=== PATIENT | male | born 1990 | race Caucasian/White ===

== ENCOUNTER 2018-04-15 08:57 | Emergency (ER) | payer BC, SELFPAY ==
[2018-04-15 09:04] VITALS: BP 143/85; PULSE 81; RESP 16; TEMP 36.3; O2SAT 97
--- NOTE | 2018-04-15 09:42 | DI.RAD_ITS ---
SYMPTOM/DIAGNOSIS: STEPPED ON FLORAL WIRE WITH PUNCTURE WOUND, ? FOREIGN BODY VS FX LEFT FOOT: Three views. No bone or joint abnormality or radiopaque foreign bodies are seen. IMPRESSION: Negative examination.
--- NOTE | 2018-04-15 09:51 | ED.GENADUL_ITS ---
Discharge Plan Disposition Patient Disposition: HOME Condition: Stable Discharge Details Chief Complaint: Laceration Clinical Impression: Puncture wound of foot Primary Care Provider: Ryan Cordon ED Provider: Dior Babin Home Meds and New Rx's Prescriptions: New cephalexin [Keflex] 500 mg capsule 500 mg PO TID 7 Days Qty: 21 RF: 0 Discharge Instructions Instructions: Puncture Wound (ED), Acute Wound Care (ED) Additional Instructions: Alternate tylenol and motrin as needed and directed for pain. Apply topical antibiotic ointment to the affected area twice daily. Keep area clean and dry and wear cotton socks to help with moisture. If you notice any worsening pain, redness or swelling, start the oral antibiotics. If you develop any fever, red streaking or significant worsening of symptoms, return to the emergency department immediately. Follow-up with your primary care doctor in 1 week for reevaluation. Discharge Data Discharge Date/Time-TO BE ENTERED AT DEPARTURE: 04/15/18 11:43 Discharge Physician: Dior Babin Medical Decision Making 27-year-old male presents with puncture wound to left medial foot with floral wire causing a through and through injury to left medial foot near first MTP joint. No obvious foreign body noted. 2 puncture wounds noted. No evidence of infection or bleeding. Neurovascularly intact. Last tetanus 1999. Will give a Boostrix and sent for left foot x-ray to rule out fracture versus foreign body. 1130 -- xray negative for fracture or foreign body. As wound is not exactly plantar and is rather on medial aspect, as he was barefoot and wound not through sole of shoe and as he has no comorbidities of immunocompromise or diabetes, he likely does not need oral antibiotics. Patient was instructed on the importance of good wound care with soap, water, cotton socks to help with moisture. He is instructed to apply Neosporin to the area twice daily for any signs of redness. Will send home with a prescription for Keflex to start if any worsening pain, redness or swelling. He was instructed to return here immediately if he develops a fever, red streaking or any significant worsening symptoms. Patient instructed to follow- up with his primary care doctor in 1 week for reevaluation. HPI General Mode of arrival: ambulatory . Date/Time Provider Initiated Documentation: 04/15/18 09:21 . Limitations to Documentation: no limitations . Information obtained by: patient . HPI Narrative: Patient is a 27-year-old male who presents with puncture wound to left medial foot near first MTP joint sustained yesterday. Patient states he was walking at home barefoot when he stepped on a floral wire which caused a through and through injury. Patient was able to remove the wire. Patient cleaned the area with alcohol. Patient is unsure of his tetanus status. Patient came here for possible tetanus and evaluation of the wound. Related Data Home Medications Medication Instructions Recorded Confirmed cephalexin [Keflex] 500 mg PO TID 7 Days #21 cap 04/15/18 Previous Rx's Medication Instructions Recorded cephalexin [Keflex] 500 mg PO TID 7 Days #21 cap 04/15/18 Allergies Allergy/AdvReac Type Severity Reaction Status Date / Time No Known Allergies Allergy Unverified 04/15/18 09:07 General Stated Complaint: Laceration MARION: 4 Review of Systems Review of Systems All systems reviewed & are unremarkable except as noted in HPI and below Constitutional Reports as per HPI, Denies chills and Denies fever(s) Eyes Denies blurry vision ENT Denies dizziness, Denies sore throat and Denies throat swelling Cardiovascular Denies chest pain and Denies dyspnea Respiratory Denies dyspnea Gastrointestinal Denies abdominal pain, Denies diarrhea and Denies vomiting Genitourinary Denies hematuria and Denies dysuria Musculoskeletal Denies back pain and Denies numbness Integumentary/Breasts Denies lesions and Denies rash Neurologic Denies dizziness and Denies numbness Allergic/Immunologic Denies throat swelling PFSH Migraine (Chronic) Medical History Migraine (Chronic) Social History Smoking/Tobacco Use Status: Never Social History Smoking/Tobacco Use Status: Never alcohol intake: current alcohol intake frequency: a few times a month substance use type: does not use Exam Const General: cooperative, healthy appearing and no acute distress HENMT Head: normal to inspection Mouth: oral mucosae normal Eyes General: appearance normal, both eyes and all related structures Neck Neck: normal visual inspection Resp Effort & Inspection: normal respiratory effort and able to speak in complete sentences Cardio Rate: regular rate Skin General skin exam: no rashes or lesions noted Neuro General: alert, awake and oriented x3 Motor: muscle tone normal throughout Extrem Left lower extremity: foot (Two 2mm puncture wounds noted near L medial 1st MTP joint. No surrounding edema, erythema, ecchymosis or drainage. No obvious foreign body noted.) Details: vascular exam Details: dorsalis pedis pulse present and posterior tibial pulse present Psych Appearance: grossly normal Affect: normal affect Course Vital Signs Temperature 97.3 F L 04/15/18 09:04 Pulse 81 04/15/18 09:04 Respiratory Rate 16 04/15/18 09:04 Blood Pressure 143/85 H 04/15/18 09:04 Pulse Oximetry 97 04/15/18 09:04 Temperature 97.3 F L 04/15/18 09:04 Temperature Source Skin 04/15/18 09:04 Pulse 81 04/15/18 09:04 Respiratory Rate 16 04/15/18 09:04 Respiratory Effort Non-Labored 04/15/18 09:04 Blood Pressure 143/85 H 04/15/18 09:04 Blood Pressure Position Sitting 04/15/18 09:04 Pulse Oximetry 97 04/15/18 09:04 Oxygen Delivery Method Room Air 04/15/18 09:04 Oxygen Flow Rate 0 04/15/18 09:04 Pain Level 2 04/15/18 09:04
--- NOTE | 2018-04-15 11:27 | DI.VRAD_ITS ---
EXAM: XR Left Foot Complete, 3 or more Views EXAM DATE/TIME: 04/15/2018 9:43 AM CLINICAL HISTORY: 27 years old, male; Signs and symptoms; Other: S/P stepped on floral wire with pincture; Patient HX: R/O foreign body vs fracture TECHNIQUE: XR Left foot 3 or more views. COMPARISON: No relevant prior studies available. FINDINGS: Bones/joints: No acute fracture. No dislocation. Soft tissues: No radiopaque foreign body. IMPRESSION: No radiopaque foreign body. Dictated and Authenticated by: Reina Lunsford MD. Ordering:ALINE KELLEY MD
[2018-04-15 11:43] VITALS: BP 111/66; PULSE 78; RESP 16; O2SAT 98
== END 2018-04-15 11:43 | disposition home or self-care (01) ==
PROVIDERS: Emergency Provider Physician Assistant; PCP Family Medicine
DX: S91.332A Puncture wound without foreign body, left foot, initial encounter (principal); W26.8XXA Contact with other sharp object(s), not elsewhere classified, initial encounter
CPT/HCPCS: 90471; 99284; 73630

== ENCOUNTER 2020-03-12 14:47 | Outpatient (REF) | payer BC, SELFPAY ==
[2020-03-17 03:37] LABS: Patient Race White; SARS-CoV-2 RNA Undetected (Undetected); SARS-CoV-2 Specimen Source Nasal
== END 2020-03-12 15:07 ==
LOC: NCHCN 14:47
PROVIDERS: PCP Family Medicine; Visit Provider Nurse Practitioner Family
DX: R05 Cough (principal)
CPT/HCPCS: U0003

== ENCOUNTER 2021-03-08 04:02 | Emergency (ER) | payer BC, SELFPAY ==
[2021-03-08 04:14] VITALS: BP 116/79; PULSE 82; RESP 18; TEMP 36.7; O2SAT 98
--- NOTE | 2021-03-08 04:16 | W.ED.GENAD ---
Discharge Plan Disposition Patient Disposition: HOME Condition: Stable Discharge Details Clinical Impression: Shingles Primary Care Provider: Ryan Cordon ED Provider: Michael Roque Home Meds and New Rx's Prescriptions: New valacyclovir 1 gram tablet 1,000 mg PO Q8H Qty: 21 RF: 0 prednisone 20 mg tablet 60 mg PO DAILY 4 Days Qty: 12 RF: 0 Continued fluoxetine [Prozac] 40 mg Capsule 40 mg PO DAILY RF: 0 magnesium 30 mg Tablet 30 mg PO DAILY RF: 0 cholecalciferol (vitamin D3) [Vitamin D3] 10 mcg (400 unit) Capsule 400 unit PO DAILY RF: 0 Discharge Instructions Instructions: Shingles (ED) Additional Instructions: your rash and pain are due to shingles which is from a virus if not starting to improve in a week follow up with your primary care provider you can take 1000mg tylenol and 600mg ibuprofen every 6 hours for pain as needed and you can try over the counter lidocaine patches if you feel more ill or have severe worsening pain return to the emergency department Medical Decision Making 30 yo male comes in with upper back pain radiating along a line to the chest on the left side and has had a rash develop in the area. No fevers, dyspnea, n/v. His back and chest pain is localized to the rash he has. He has a vesicular rash in patches going from the left back to left chest in the t5 dermatome. No surrouding erythema, clear lungs, no murmurs. His rash and pain is consistent with shingles. Will start him on antivirals and prednisone. Advised to f/u with pcp and return precautions given Differential Diagnosis Differential Diagnosis: shingles, post herpetic neuroalgia HPI General Mode of arrival: ambulatory. Date/Time Provider Initiated Documentation: 03/08/21 04:04. Limitations to Documentation: no limitations. Information obtained by: patient. History of Present Illness 30 year old M presents to the emergency department with the chief complaint of rash, described as moderate, Quality is described as aching, and is localized to the chest and back. Patient started experiencing this day(s) (3) and it has been constant. No relieving factors improve symptom(s), No exacerbating factors reported . Patient did receive the following treatments prior to arrival, none Related Data Home Medications Medication Instructions Recorded Confirmed cholecalciferol (vitamin D3) 400 unit PO DAILY 03/08/21 03/08/21 [Vitamin D3] fluoxetine [Prozac] 40 mg PO DAILY 03/08/21 03/08/21 magnesium 30 mg PO DAILY 03/08/21 03/08/21 prednisone 60 mg PO DAILY 4 Days #12 tab 03/08/21 valacyclovir 1,000 mg PO Q8H #21 tab 03/08/21 Previous Rx's Medication Instructions Recorded prednisone 60 mg PO DAILY 4 Days #12 tab 03/08/21 valacyclovir 1,000 mg PO Q8H #21 tab 03/08/21 Allergies Allergy/AdvReac Type Severity Reaction Status Date / Time No Known Allergies Allergy Unverified 03/08/21 04:20 General MARION: 4 Review of Systems All systems reviewed & are unremarkable except as noted in HPI and below Constitutional Constitutional: Denies chills, Denies fever(s) and Denies weakness Cardiovascular Cardiovascular: Denies dyspnea Respiratory Respiratory: Denies cough and Denies dyspnea Gastrointestinal Gastrointestinal: Denies abdominal pain, Denies nausea and Denies vomiting Musculoskeletal Musculoskeletal: Denies joint swelling Neurologic Neurologic: Denies weakness [facility] Medical History (Updated 03/08/21 @ 04:27 by Michael Roque MD) Migraine Social History (Updated 04/15/18 @ 09:48 by Dior Babin DO) Smoking/Tobacco Use Status: Former Tobacco Use Smoking risk assessment performed?: Yes Alcohol Intake: current Alcohol Intake frequency: a few times a month Drug use: Never Substance use type: does not use Do you feel safe at home: Yes Do you feel safe in your relationship?: Yes Exam Const General: no acute distress Orientation: alert HENMT Head: normal to inspection Ears: external ears normal General nose exam: external nose normal Mouth: moist mucous membranes Eyes General: appearance normal, both eyes and all related structures Neck Neck: normal visual inspection Resp Effort & Inspection: normal respiratory effort and able to speak in complete sentences Cardio Rate: regular rate Skin General skin exam: elasticity normal Neuro General: patient alert and patient oriented x3 Extrem General: normal to inspection Psych Mental Status: mental status grossly normal
[2021-03-08] MEDS: predniSONE 20 MG TAB 60 MG PO (04:36)
[2021-03-08] MEDS: valACYclovir 500 MG TAB (04:38)
== END 2021-03-08 04:47 | disposition home or self-care (01) ==
PROVIDERS: Emergency Provider Emergency Medicine; PCP Family Medicine
DX: B02.9 Zoster without complications (principal)
CPT/HCPCS: 99283; J7512

== ENCOUNTER 2021-11-16 10:42 | Outpatient (REF) | payer SELFPAY ==
[2021-11-17 15:18] LABS: COVID-19 RT-PCR UVMMC Result Negative (Negative)
== END 2021-11-16 10:43 | disposition home or self-care (01) ==
LOC: LBN 10:42
PROVIDERS: PCP Family Medicine; Visit Provider Nurse Practitioner Family
DX: Z20.822 Contact with and (suspected) exposure to COVID-19 (principal)
CPT/HCPCS: U0003

== ENCOUNTER 2022-05-23 00:13 | Emergency (ER) | payer OTHER, SELFPAY ==
[2022-05-23 00:18] VITALS: BP 136/96; PULSE 88; RESP 16; TEMP 37; O2SAT 99
--- NOTE | 2022-05-23 00:27 | ED.GENADUL_ITS ---
Discharge Plan Disposition Patient Disposition: Home Condition: Good Discharge Details Clinical Impression: Gout attack Primary Care Provider: Ryan Cordon ED Provider: Guillermo Velasquez Home Meds and New Rx's Prescriptions: New prednisone 50 mg tablet 50 mg PO DAILY Qty: 4 0RF No Action Probiotic 5 billion cell Capsule, Sprinkle 2 cap PO BID magnesium 30 mg Tablet 30 mg PO DAILY cholecalciferol (vitamin D3) [Vitamin D3] 10 mcg (400 unit) Capsule 400 unit PO DAILY Discharge Instructions Instructions: Gout (ED) Additional Instructions: At this time your symptoms are concerning for gout. There is no current evidence of infection thankfully. Please take 800 mg of ibuprofen/Motrin, and 1000 mg of acetaminophen/Tylenol every 6 hours. These are the maximum doses. Reapply a square section of the Lidoderm patch to your foot every 12-24 hours. Take the prednisone steroid as directed. Taking the steroid and the NSAID medication can cause some stomach irritation. Make sure to take these medications on a full stomach. Please avoid any cheeses, preserved meats, or high-protein diet components. If you notice any worsening of your symptoms, or any new symptoms such as vomiting, diarrhea, fever, chills, shortness of breath, chest pain, numbness, weakness, or fainting , please return immediately to the emergency department for reevaluation. Please follow up with your primary care provider as soon as possible for reassessment and reevaluation. As always, it was a pleasure participating in your medical care today. Medical Decision Making 31-year-old male with a family history of gout presents today for pain in his right great toe. Patient admits to about 2 days of mild achiness and then notable worsening of pain tonight. He denies any trauma, he states that it felt like he might of stubbed it but denies stubbing it on anything. He does eat meats and cheeses regularly but denies any excessive use. He has taken Motrin which is only mildly improved his pain. He denies any history of gout in the past. No fever or chills. No other complaints at this time. Exam demonstrates evidence of tender interphalangeal joint for the right great toe. Mild redness, minimal swelling, no fluctuance or fluid collection. No streaking. No evidence of paronychia or nail infection. No evidence of cellulitis or streaking. No fever or chills. Symptoms appear to be clinically consistent at this time with mild gout. Will recommend Tylenol and Motrin, will give a dose of Toradol here. We will start the patient on a prednisone burst, will give Lidoderm patch topically, and monitor close follow-up with family practice physician at [place]. No indication for imaging as there was no trauma. No evidence of foreign body or injection site. Recommend dietary changes. Discussed red flags for which to return. I have extensively reviewed the treatment plan and discharge instructions with the patient and their family. I have addressed all patient concerns at this time. The patient and family was made aware of what symptoms to monitor for that would warrant a return to the emergency department. Discussed the plan with the patient and family, they demon strate verbal understanding and agreement with our assessment and plan at this time. The documentation in this chart was dictated using [employer] dictation software. Please excuse any dictation errors. HPI General Date/Time Provider Initiated Documentation: 05/23/22 00:14 . HPI Narrative: 31-year-old male with a family history of gout presents today for pain in his right great toe. Patient admits to about 2 days of mild achiness and then notable worsening of pain tonight. He denies any trauma, he states that it felt like he might of stubbed it but denies stubbing it on anything. He does eat meats and cheeses regularly but denies any excessive use. He has taken Mot rin which is only mildly improved his pain. He denies any history of gout in the past. No fever or chills. No other complaints at this time. Related Data Home Medications Medication Instructions Recorded Confirmed cholecalciferol (vitamin D3) 10 400 unit PO DAILY 03/08/21 05/23/22 mcg (400 unit) capsule (Vitamin D3) magnesium 30 mg tablet 30 mg PO DAILY 03/08/21 05/23/22 Lactobacil.acidophilus-Bifido.animalis 2 cap PO BID 05/23/22 05/23/22 5 billion cell sprinkle capsule (Probiotic) prednisone 50 mg tablet 50 mg PO DAILY #4 tabs 05/23/22 Previous Rx's Medication Instructions Recorded prednisone 50 mg tablet 50 mg PO DAILY #4 tabs 05/23/22 Allergies Allergy/AdvReac Type Severity Reaction Status Date / Time No Known Allergies Allergy Unverified 03/08/21 04:20 General Stated Complaint: Orthopedic MARION: 3 Review of Systems All systems reviewed & are unremarkable except as noted in HPI and below PFSH All Active Problems Shingles (Acute) Gout attack (Acute) Medical History Migraine Social History Smoking/Tobacco Use Status: Former Tobacco Use Smoking risk assessment performed?: Yes Alcohol Intake: current Alcohol Intake frequency: a few times a month Drug use: Never Substance use type: does not use Do you feel safe at home: Yes Do you feel safe in your relationship?: Yes Exam Narrative Exam Narrative: 1.Const: Well-nourished, Well-developed, appearing stated age 2.Eyes: PERRL, no conjunctival injection, and symmetrical lids. 3.ENT: Atraumatic external nose and ears. Moist MM. Neck: Symmetric, trachea midline, No thyromegaly. 4.CVS: +S1/S2, No murmurs or gallops. Peripheral pulses 2+ and equal in all extremities. Brisk capillary refill in all extremities. 5.RESP: Unlabored respiratory effort. Clear to auscultation bilaterally. No wheezes rales or rhonchi 6.GI: Soft, Nontender/Nondistended, No hepatosplenomegaly. No guarding or rebound. 7.MSK: Normocephalic/Atraumatic, right great toe demonstrates no paronychia, or evidence of infection around the nailbed. There is evidence of mild swelling at the interphalangeal joint for the great toe on the lateral aspect. No fluctuance. Minimal redness. It is cool in temperature. It is not hot. No abscess or streaking proximally. Patient does have notable pain with flexion and extension of the toe. No signs of trauma otherwise though. 8.Skin: Warm, Dry. No rashes or lesions. 9.Neuro: mason apprentice II-XII grossly intact. Sensation grossly intact, no focal neurologic deficits. 10.Psych: (AAO) x3. Appropriate mood and affect Course Vital Signs Vital signs: Vital Signs Temperature 37 C 05/23/22 00:18 Pulse 88 01/09/23 00:18 Respiratory Rate 16 05/23/22 00:18 Blood Pressure 136/96 H 05/23/22 00:18 Pulse Oximetry 99 05/23/22 00:18 Temperature 37 C 05/23/22 00:18 Temperature Source Temporal Artery Scan 05/23/22 00:18 Pulse 88 05/23/22 00:18 Respiratory Rate 16 05/23/22 00:18 Respiratory Effort 05/23/22 00:18 Blood Pressure 136/96 H 05/23/22 00:18 Blood Pressure Position Sitting 05/23/22 00:18 Pulse Oximetry 99 05/23/22 00:18 Oxygen Delivery Method Room Air 05/23/22 00:18 Oxygen Flow Rate 0 05/23/22 00:18 Pain Level 8 05/23/22 00:18
[2022-05-23] MEDS: predniSONE 20 MG TAB 60 MG PO (00:35)
[2022-05-23] MEDS: Ketorolac 30 MG/ML VIAL IM (00:35)
[2022-05-23] MEDS: Lidocaine 5% Patch 1 PATCH TP (00:36)
[2022-05-23] MEDS: Acetaminophen 500 MG TAB 1000 MG PO (00:39)
== END 2022-05-23 01:23 | disposition home or self-care (01) ==
LOC: ER 01:23
PROVIDERS: Emergency Provider Student in an Organized Health Care Education/Training Program; PCP Family Medicine
DX: M10.9 Gout, unspecified (principal)
CPT/HCPCS: 96372; 99283; 99284; J1885; J7512

== ENCOUNTER 2023-12-27 16:02 | Outpatient (CLI) | payer BC, SELFPAY ==
[2023-12-29 08:45] LABS: HBs Antibody, Quant 37.4 mIU/mL (See Note); Hepatitis B Surface Ab Positive (See Note)
[2023-12-29 09:25] LABS: HIV-1/2 Ag & Ab Screen Negative (Negative)
[2023-12-29 09:28] LABS: Hepatitis C Ab w Rflx HCV PCR Negative (Negative)
[2023-12-29 09:55] LABS: Hep B Core Antibody Negative (Negative)
[2023-12-29 11:48] LABS: Syphilis Serology (RPR) Negative (Negative)
[2023-12-29 13:34] LABS: Chlamydia Result Negative (Negative); GC Result Negative (Negative)
== END 2023-12-27 16:03 | disposition home or self-care (01) ==
LOC: LBO 16:02
PROVIDERS: PCP Family Medicine; Visit Provider Obstetrics & Gynecology Reproductive Endocrinology
DX: Z11.3 Encounter for screening for infections with a predominantly sexual mode of transmission (principal); Z11.59 Encounter for screening for other viral diseases
CPT/HCPCS: 36415; 86704; 86706; 86803; 87389; 87491; 87591; 86592